=== PATIENT | male | born 1960 | race Asian ===

== ENCOUNTER 2019-05-20 10:44 | Inpatient (IN) | payer OTHER ==
[2019-05-20] VITALS (10 sets, daily range): BP systolic 133–156; BP diastolic 68–90; TEMP 97.7–99; Ht 190.5 cm; Wt 103.9 kg
[~2019-05-20] VITALS: Ht 190.5 cm; Wt 103.9 kg
[2019-05-20 11:39] LABS: PLATELET COUNT 227 K/uL (142-355)
[2019-05-20] MEDS ORDERED: GLIP10TA55 PO (17:52)
[2019-05-20] MEDS ORDERED: METFORMIN HYDR850 MG PO (17:54)
--- NOTE | 2019-05-20 18:12 | NUR ---
PT EDUCATED ON BLOOD GLUCOSE LEVEL OF 507. PT EDUCATED ON NEED FOR INSULIN AND DOSAGE AT THIS TIME. PT ALSO EDUCATED ON SIDE EFFECTS AND S/S OF LOW BLOOD GLUCOSE LEVELS AND TO CALL IF NEEDING HELP WITH AMBULATION OR IF PT FEELS LIKE BLOOD GLUCOSE LEVELS ARE LOW. PT VERBALIZED UNDERSTANDING AT THIS TIME. NAD NOTED. WILL CONTINUE TO MONITOR.
[2019-05-21] VITALS (7 sets, daily range): BP systolic 130–138; BP diastolic 70–86; TEMP 97.3–99.4
[2019-05-21 05:56] LABS: PLATELET COUNT 142 K/uL (142-355)
[2019-05-21 06:23] LABS: POTASSIUM 4.5 mmol/L (3.6-5.2)
--- NOTE | 2019-05-21 07:00 | NUR ---
PT RESTING IN LF WITH EYES CLOSED.IV NS AT 200ML/HR INFUSING INTO R FA IV 22G WITHOUT PROBLEMS.
--- NOTE | 2019-05-21 11:00 | NUR ---
PT RESING IN LF. EYES CLOSED.
--- NOTE | 2019-05-21 13:18 | NUR ---
PT C/O PAIN # 5 ON PAIN SCALE, ABD REMAINS TENDER R UPPER QUADRANT.MEDICATED WITH MORPHINE 2MG SIVP.
--- NOTE | 2019-05-22 01:34 | NUR ---
05/21/2019 2142: REPORT RECEIVED FROM AMANDA DUMONT RN.
[2019-05-22 04:00] VITALS: BP 138/77; TEMP 98.9
[2019-05-22 07:35] LABS: PLATELET COUNT 137 K/uL (142-355)
[2019-05-22 08:01] LABS: POTASSIUM 4.2 mmol/L (3.6-5.2)
--- NOTE | 2019-05-22 09:45 | NUR ---
PT DENIES ANY COMPLAINTS AT THIS TIME. NAD NOTED. WILL CONTINUE TO MONITOR.
[2019-05-22 12:00] VITALS: BP 139/69; TEMP 98.7
--- NOTE | 2019-05-22 15:59 | NUR ---
PT STATES "IM HAVING PAIN TO MY LEFT ELBOW ADN I KNOWITS THE GOUT." NURSE INSTRUCTED PT SHE WOULD LET MD KNOW AT THIS TIME.
[2019-05-22 16:00] VITALS: BP 145/81; TEMP 99.1
--- NOTE | 2019-05-22 16:08 | NUR ---
22G LEFT HAND STARTED PER SANDEEP VAIL. FLUIDS RESUMED PER MD ORDER.
[2019-05-22 19:57] VITALS: BP 146/82; TEMP 99.1
[2019-05-22 23:58] VITALS: BP 154/83; TEMP 98.8
[2019-05-23 03:52] VITALS: BP 152/83; TEMP 99.2
[2019-05-23 05:12] LABS: PLATELET COUNT 143 K/uL (142-355)
[2019-05-23 05:21] LABS: POTASSIUM 3.9 mmol/L (3.6-5.2)
[2019-05-23 08:00] VITALS: BP 150/88; TEMP 99.1
[2019-05-23 12:00] VITALS: BP 160/87; TEMP 98.9
[2019-05-23 16:00] VITALS: BP 148/86; TEMP 99.4
[2019-05-23 20:00] VITALS: BP 143/94; TEMP 98.7
[2019-05-24] VITALS (7 sets, daily range): BP systolic 142–162; BP diastolic 78–95; TEMP 97.9–99
--- NOTE | 2019-05-24 06:19 | NUR ---
PT UP TO BATHE OFF AT THIS TIME. NAD NOTED. GAIT STEADY
[2019-05-25] VITALS: BP 140/93; TEMP 98.1
[2019-05-25 04:00] VITALS: BP 160/87; TEMP 98.8
[2019-05-25 05:47] LABS: PLATELET COUNT 192 K/uL (142-355)
[2019-05-25 05:59] LABS: POTASSIUM 3.6 mmol/L (3.6-5.2)
[2019-05-25 08:06] VITALS: BP 172/98; TEMP 99
[2019-05-25 12:09] VITALS: BP 165/91; TEMP 98.1
[2019-05-25 16:23] VITALS: BP 161/90; TEMP 98.4
[2019-05-25 20:00] VITALS: BP 151/44; BP 151/99; TEMP 101.1
[2019-05-26] VITALS: BP 127/76; TEMP 98.2
[2019-05-26 04:00] VITALS: BP 134/73; TEMP 98.9
[2019-05-26 05:03] LABS: PLATELET COUNT 166 K/uL (142-355)
[2019-05-26 05:11] LABS: POTASSIUM 3.4 mmol/L (3.6-5.2)
[2019-05-26 12:00] VITALS: BP 168/87; TEMP 98.7
[2019-05-26 16:00] VITALS: BP 155/82; TEMP 98.2
[2019-05-26 20:00] VITALS: BP 143/75; TEMP 98.5
[2019-05-27] VITALS: BP 153/77; TEMP 98.6
[2019-05-27 04:00] VITALS: BP 174/93; TEMP 98.2
[2019-05-27 06:17] LABS: POTASSIUM 3.4 mmol/L (3.6-5.2)
[2019-05-27 06:19] LABS: PLATELET COUNT 223 K/uL (142-355)
[2019-05-27 08:00] VITALS: BP 158/82; TEMP 98.9
[2019-05-27 12:00] VITALS: BP 160/86; TEMP 98.9
[2019-05-27 16:00] VITALS: BP 167/88; TEMP 98.6
--- NOTE | 2019-05-27 17:17 | NUR ---
PATIENT NOTIFIED OF NPO AFTER MIDNIGHT AND VOICES UNDERSTANDING FOR PANCREATIC ULTRASOUND TOMORROW.
[2019-05-27 20:00] VITALS: BP 157/89; TEMP 98.4
[2019-05-28] VITALS: BP 146/73; TEMP 98.5
[2019-05-28 04:00] VITALS: BP 169/85; TEMP 98.7
[2019-05-28 04:19] LABS: POTASSIUM 3.2 mmol/L (3.6-5.2)
[2019-05-28 05:09] LABS: PLATELET COUNT 258 K/uL (142-355)
[2019-05-28 08:00] VITALS: BP 148/87; TEMP 98.4
[2019-05-28 12:00] VITALS: BP 165/81; TEMP 97.9
--- NOTE | 2019-05-28 15:21 | NUR ---
PATIENT GIVEN DISCHARE INSTRUCTIONS WITH VERBAL UNDERSTANDING NOTED. PATIENT GIVEN AN APPOINTMENT TO SEE [facility] FOR FOLLOW UP ON ACUTE PANCREATITIS THIS ADMISSION. PATIENT EDUCATED ON REOCCURING SYMPTOMS REGARDING PANCREATITIS WHICH INCLUDE SEVERE ABDOMINAL PAIN, NAUSEA,VOMITING AND FEVER. PATIENT INSTRUCTED IF S/S OCCURED TO GO TO THE NEAR ER. IV 22G TO THE LEFT FOREARM DISCONTINUED TO TIP INTACT. PATIENT TOLERATED WELL AREA SECURED WITH COTTONBALL AND TAPE. PATIENT TAKEN WITH PERSONAL BELONGINGS TO THE ER EXIT. PATIENT LEFT IN NO ACUTE DISTRESS.
== END 2019-05-28 15:30 | disposition home or self-care (01) | DRG 439 ==
LOC: ED 10:44 → MED/SURG 15:05
PROVIDERS: Internal Medicine; Internal Medicine Endocrinology, Diabetes & Metabolism; ADMIT Family Medicine
DX: K85.80 Other acute pancreatitis without necrosis or infection (principal); E87.1 Hypo-osmolality and hyponatremia; N17.8 Other acute kidney failure; E11.9 Type 2 diabetes mellitus without complications; D72.828 Other elevated white blood cell count; M10.9 Gout, unspecified
CPT/HCPCS: 36415; 80048; 80053; 80061; 81000; 81002; 82150; 83690; 84478; 85027; 96360; 96375; 99284; J1885; J1940; J2185; J2270; J2405; J3490; Q9963